=== PATIENT | male | born 1955 | race Caucasian/White ===

== ENCOUNTER 2016-12-13 11:14 | Day surgery (SDC) | payer BC ==
[~2016-12-13] VITALS: Ht 177.8 cm; Wt 88.5 kg
[~2016-12-13 11:14] MED LIST: ABILIFY10 MG PO; ALPRAZOLAM1 MG PO; BENTYL20 MG PO; CELEBREX200 MG PO; CLONAZEPAM1 MG PO; CYCLOBENZAPRINE10 MG PO; DOXEPIN HCL150 MG PO; DULOXETINE HCL60 MG PO; METHOCARBAMOL500 MG PO; MORPHINE SULFAT15 M1 PO; NEURONTIN300 MG PO; OMEPRAZOLE20 MG PO; OXAYDO5 MG PO; OXYCODONE HCL10 MG PO; PROTONIX40 MG PO; REQUIP3 MG PO; ROPINIROLE HCL3 MG PO; SIMVASTATIN40 MG PO; XANAX0.5 MG PO; ZANAFLEX4 M1 PO; ZESTORETIC 20-1 EAC2 PO
== END 2016-12-13 12:33 | disposition home or self-care (01) ==
LOC: PAIN 11:14
PROC: 015B3ZZ Destruction of Lumbar Nerve, Percutaneous Approach (ICD-10-PCS; principal; 2016-12-13)
DX: M47.26 Other spondylosis with radiculopathy, lumbar region (principal); F41.9 Anxiety disorder, unspecified; K21.9 Gastro-esophageal reflux disease without esophagitis; I10 Essential (primary) hypertension; E78.5 Hyperlipidemia, unspecified; F43.10 Post-traumatic stress disorder, unspecified; G25.81 Restless legs syndrome; Z79.891 Long term (current) use of opiate analgesic; Z88.8 Allergy status to other drugs, medicaments and biological substances
CPT/HCPCS: J1030; S0020

== ENCOUNTER 2016-12-20 10:36 | Day surgery (SDC) | payer BC ==
[~2016-12-20] VITALS: Ht 177.8 cm; Wt 88.5 kg
== END 2016-12-20 12:24 | disposition home or self-care (01) ==
LOC: PAIN 10:36 → SDC 11:00 → PAIN 12:24
DX: M47.26 Other spondylosis with radiculopathy, lumbar region (principal); M54.5 Low back pain; M79.1 Myalgia; M47.812 Spondylosis without myelopathy or radiculopathy, cervical region; E55.9 Vitamin D deficiency, unspecified; Z79.891 Long term (current) use of opiate analgesic
CPT/HCPCS: J1030; S0020

== ENCOUNTER 2017-09-24 18:18 | Emergency (ER) | payer OTHER ==
[~2017-09-24] VITALS: Ht 175.3 cm; Wt 85.8 kg
[2017-09-24 20:01] LABS: HEMATOCRIT 46.8 % (38.0-50.0); HEMOGLOBIN 16.2 G/DL (12.5-16.6); MCH 30.1 PG (29.0-34.0); MCHC 34.6 G/DL (30.0-36.0); MCV 86.8 FL (86-99); PLATELET COUNT 218 K/uL (156-360); RBC DIS.WIDTH-CV 12.7 % (11.8-14.6); RBC DIS.WIDTH-SD 40.1 % (39-53); RED BLOOD COUNT 5.39 M/uL (4.00-5.50); WHITE BLOOD COUNT 7.4 K/uL (4.1-10.2)
[2017-09-24 20:10] LABS: CHLORIDE 106 mEq/L (99-109); SODIUM 138 mEq/L (136-147)
[2017-09-24 20:11] LABS: GLUCOSE 107 mg/dL (70-99)
[2017-09-24 20:15] LABS: CREATININE 0.8 mg/dL (0.6-1.3); GFR ESTIMATE (CALCULATED) > 59 mL/min/ (58.99-99999)
[2017-09-24 20:16] LABS: UREA NITROGEN (BUN) 18 mg/dL (9-23)
[2017-09-24 20:37] LABS: APPEARANCE CLEAR ((CLEAR)); BILIRUBIN NEGATIVE; BLOOD NEGATIVE; COLOR YELLOW ((YELLOW)); GLUCOSE (STRIP) NEGATIVE; KETONES NEGATIVE; LEUKOCYTES NEGATIVE; NITRITE NEGATIVE; PROTEIN (STRIP) 30; SPECIFIC GRAVITY 1.025 (1.000-1.030); UCUL ADDED? NO; UROBILINOGEN 0.2 MG/DL (0.2-1.0)
[2017-09-24] MEDS ORDERED: AMBIEN10 MG PO (21:00)
[2017-09-24 21:10] VITALS: BP 124/78
== END 2017-09-24 21:12 | disposition home or self-care (01) ==
LOC: EME 18:18
DX: G47.50 Parasomnia, unspecified (principal); G47.00 Insomnia, unspecified; G25.81 Restless legs syndrome; F32.9 Major depressive disorder, single episode, unspecified; F41.9 Anxiety disorder, unspecified; R56.9 Unspecified convulsions; Z88.5 Allergy status to narcotic agent
CPT/HCPCS: 80048; 80156; 80184; 80185; 81003; 85027; 93005; 99281; 99284

== ENCOUNTER 2017-12-24 08:19 | Day surgery (SDC) | payer OTHER ==
[~2017-12-24] VITALS: Ht 170.2 cm; Wt 81.2 kg
[~2017-12-24 08:19] MED LIST changes: +AMBIEN10 MG PO; +KLONOPIN0.5 M1 PO; -OXAYDO5 MG PO; +TRAZODONE HCL50 MG PO
== END 2017-12-24 09:37 | disposition home or self-care (01) ==
LOC: PAIN 08:19
DX: M47.816 Spondylosis without myelopathy or radiculopathy, lumbar region (principal); G89.21 Chronic pain due to trauma; Z88.5 Allergy status to narcotic agent
CPT/HCPCS: J1030; J2250; S0020

== ENCOUNTER 2018-01-07 08:27 | Day surgery (SDC) | payer OTHER ==
[~2018-01-07] VITALS: Ht 172.7 cm; Wt 79.4 kg
== END 2018-01-07 10:00 | disposition home or self-care (01) ==
LOC: PAIN 08:27 → SDC 08:30 → PAIN 10:00
DX: M47.816 Spondylosis without myelopathy or radiculopathy, lumbar region (principal); M54.16 Radiculopathy, lumbar region; M47.812 Spondylosis without myelopathy or radiculopathy, cervical region; K21.9 Gastro-esophageal reflux disease without esophagitis; E78.5 Hyperlipidemia, unspecified; F41.8 Other specified anxiety disorders; Z88.5 Allergy status to narcotic agent; G89.29 Other chronic pain; Z79.891 Long term (current) use of opiate analgesic
CPT/HCPCS: J1030; J1885; J2250; S0020